=== PATIENT | male | born 1995 | race Caucasian/White ===

== ENCOUNTER 2017-02-19 17:08 | Emergency (ER) | payer BC, OTHER ==
[~2017-02-19] VITALS: Ht 185.4 cm; Wt 123.8 kg
[~2017-02-19 17:08] MED LIST: SERT50TA PO
[2017-02-19 17:34] VITALS: TEMP 37.6; Ht 185.4 cm; Wt 123.8 kg
[2017-02-19] MEDS ORDERED: CEFTRIAXONE SOD INJ 1 GM ADDVIAL IV STA (19:22)
[2017-02-19] MEDS ORDERED: KETOROLAC TROMETHAMINE 30 MG/ML VIAL IV STA (19:22)
[2017-02-19] MEDS ORDERED: NYSTATIN SUSP 500,000 U/5 ML UDC PO STA (19:22)
[2017-02-19] MEDS ORDERED: DEXAMETHASONE SOD INJ 10 MG/ML VIAL IV ONE (19:30)
[2017-02-19] MEDS ORDERED: CEPH500C PO (19:44)
[2017-02-19 19:53] LABS: HEMATOCRIT 41.9 % (42-52); MEAN CELL VOLUME 85.2 fL (80-100); MEAN CORPUSCULAR HEMOGLOBIN 29.7 pg (25-34); MEAN CORPUSCULAR HGB CONC 34.8 g/dl (32-36); MEAN PLATELET VOLUME 9.6 fL (7.4-10.4); PLATELET COUNT 197 K/uL (130-400); RED BLOOD COUNT 4.92 M/uL (4.7-6.1); WHITE BLOOD COUNT 18.14 K/uL (4.8-10.8)
[2017-02-19 20:14] LABS: COMPLETE YES; LYMPH ABS # 2.39 K/uL (1.2-3.4); LYMPHOCYTE % 13.2 %; NEUTROPHILS % 39.4 %; VARIANT LYM ABS # 7.17 K/uL; VARIANT LYMPHOCYTE % 39.5 %
[2017-02-19 20:20] LABS: BUN/CREATININE RATIO 11.3 (10-20); CALCIUM 8.8 mg/dl (8.5-10.1); POTASSIUM 3.8 mmol/L (3.5-5.1)
--- NOTE | 2017-02-19 20:58 | EMERGENCY ROOM VISIT NOTE ---
History Report prepared by Brenda: Jaziel Minor Under the Supervision of: Dr. Quirino Cronin D.O. First contact with patient: 19:10 Chief Complaint: ILLNESS Stated Complaint: SWOLLEN/SORE TONSILS, FEVER, DIARRHEA, MOUTH SORES History of Present Illness The patient is a 21 year old male who presents to the Emergency Room with complaints of a persistent illness beginning about 1 week ago. He notes his tonsils became swollen and he had a sore throat. He was prescribed a z-pack which reduced his swelling mostly but did not resolve his sore throat. He was prescribed a different antibiotic after telling his PCP that the z-pack did not work. He was then prescribed a different antibiotic again after he developed fever, chills, sores in his mouth, a sore tongue, oral thrush, and diarrhea. He notes his sore throat is worsened with swallowing, and that his prescription was changed from a pill to a liquid after he noted he had pain with swallowing, but the patient notes this new antibiotic worsens his oral thrust as it reacts with prednisone. He has not been tested for strep throat. Source of History: patient Onset: about 1 week ago Position: other (global) Quality: other (illness) Timing: other (persistent) Associated Symptoms: + chills, + diarrhea, + fevers, + sorethroat Note: The patient notes having sores in his mouth, a sore tongue, and oral thrush. Review of Systems See HPI for pertinent positives & negatives. A total of 10 systems reviewed and were otherwise negative. Past Medical & Surgical Medical Problems: (1) Asthma (2) Depression Family History Cancer Gallbladder disease Heart disease Hypertension Seizures Social History Smoking Status: Never Smoker Marital Status: single Housing Status: lives with family Occupation Status: student Current/Historical Medications Scheduled Cephalexin Monohydrate (Keflex), 500 MG PO BID Sertraline (Zoloft), 75 MG PO DAILY Allergies Coded Allergies: Amoxicillin (Verified Allergy, Unknown, HIVES, 06/28/15) Uncoded Allergies: PENICILLIN (Allergy, Unknown, UNKNOWN, 02/19/17) SEAFOOD (Allergy, Unknown, UNKNOWN, 02/19/17) Physical Exam Vital Signs Date Time Temp Pulse Resp B/P Pulse Ox O2 Delivery O2 Flow Rate FiO2 02/19/17 19:45 122 18 150/82 96 Room Air 02/19/17 17:34 37.6 118 20 125/75 95 Room Air Physical Exam CONSTITUTIONAL/VITAL SIGNS: Reviewed / noted above. GENERAL: Non-toxic in appearance. INTEGUMENTARY: Warm, dry, and [place]. HEAD: Normocephalic. EYES: without scleral icterus or trauma. ENT/OROPHARYNX: Bilateral exudate and tonsillitis. Uvular edema. No evidence of abscess. White plaque on tongue suggestive of thrush. LYMPHADENOPATHY/NECK: Is supple without lymphadenopathy or meningismus. RESPIRATORY: Lungs clear and equal. CARDIOVASCULAR: Regular rate and rhythm. GI/ABDOMEN: Soft and nontender. No organomegaly or pulsatile mass. No rebound or guarding. Normal bowel sounds. EXTREMITIES: Warm and well perfused. BACK: No CVA tenderness. NEUROLOGICAL: Intact without focal deficits. PSYCHIATRIC: normal affect. MUSCULOSKELETAL: Normally developed with good muscle tone. Medical Decision & Procedures Laboratory Results 02/19/17 19:38 Red Blood Count 4.92, Mean Corpuscular Volume 85.2, Mean Corpuscular Hemoglobin 29.7, Mean Corpuscular Hemoglobin Concent 34.8, Mean Platelet Volume 9.6 02/19/17 19:38 Test 02/19/17 19:38 White Blood Count 18.14 K/uL (4.8-10.8) Red Blood Count 4.92 M/uL (4.7-6.1) Hemoglobin 14.6 g/dL (14.0-18.0) Hematocrit 41.9 % (42-52) Mean Corpuscular Volume 85.2 fL (80-100) Mean Corpuscular Hemoglobin 29.7 pg (25-34) Mean Corpuscular Hemoglobin Concent 34.8 g/dl (32-36) Platelet Count 197 K/uL (130-400) Mean Platelet Volume 9.6 fL (7.4-10.4) RDW Standard Deviation 44.7 fL (36.4-46.3) RDW Coefficient of Variation 14.3 % (11.5-14.5) Neutrophils % (Manual) 39.4 % Lymphocytes % (Manual) 13.2 % Variant Lymphocytes % (manual) 39.5 % Monocytes % (Manual) 7.9 % Neutrophils # (Manual) 7.15 K/uL (1.4-6.5) Total Absolute Neutrophils 7.15 K/uL (1.4-6.5) Lymphocytes # (Manual) 2.39 K/uL (1.2-3.4) Absolute Variant Lymphocytes 7.17 K/uL Total Absolute Lymphocytes 9.56 K/uL (1.2-3.4) Monocytes # (Manual) 1.43 K/uL (0.11-0.59) Red Blood Cell Morphology Unremarkable Anion Gap 12.0 mmol/L (3-11) Est Creatinine Clear Calc Drug Dose 161.1 ml/min Estimated GFR () 124.1 Estimated GFR (Non- 107.1 BUN/Creatinine Ratio 11.3 (10-20) Calcium Level 8.8 mg/dl (8.5-10.1) Monoscreen POS (NEG) Laboratory results as stated above per my review. Medications Administered Medications (Trade) Dose Ordered Sig/Sheila Route Start Time Stop Time Status Last Admin Dose Admin Nystatin (Mycostatin Susp) 5 ml NOW STAT PO 02/19/17 19:22 02/19/17 19:28 DC 02/19/17 19:49 5 ML Dexamethasone Sodium Phosphate (Decadron Inj) 10 mg NOW ONCE IV 02/19/17 19:30 02/19/17 19:31 DC 02/19/17 19:48 10 MG Ketorolac Tromethamine (Toradol Inj) 30 mg NOW STAT IV 02/19/17 19:22 02/19/17 19:28 DC 02/19/17 19:48 30 MG Ceftriaxone Sodium (Rocephin Inj) 1 gm NOW STAT IV 02/19/17 19:22 02/19/17 19:28 DC 02/19/17 19:47 1 GM ED Course 1910: Previous medical records were reviewed. The patient was evaluated in room C8. A complete history and physical examination was performed. 1921: Ordered Rocephin Inj 1 gm IV, Toradol Inj 30 mg IV, and Nystatin 5 ml PO. 1929: Ordered Decadron Inj 10 mg IV. 2099: On reevaluation, the patient is doing well. I discussed the results and findings with the patient. He verbalized agreement of the treatment plan. The patient was discharged home. Medical Decision Differentials include strep, pharyngitis, mononucleosis, peritonsillar abscess, and viral syndrome. This is a 21-year-old male who presents to the ED with a chief complaint of sore throat. The patient states that he has had the symptoms for a little over a week. He states that he has been placed on a Z-Micha initially a week ago for the symptoms but it did not help. He was placed on a second antibiotic that he did not complete. He developed some white plaques on his tongue and in addition to a sore throat. Because of his continued symptoms, he came here for evaluation. Temperature is 37.6. Heart rate is 118. Physical exam reveals an exudative tonsillitis without abscess. He also has some thrush on his tongue. There is no anterior lymphadenopathy that is appreciated. Lungs are clear. Rest of exam was unremarkable. The WBC is 18. Strep test is negative. PRP was normal. Monospot is positive. The patient was told results the test. He was given IV Decadron 10 mg as well as IV Toradol. By mouth nystatin was given an IV Rocephin was given antibiotic will not be continued as he has a positive Monospot. He was told to take ibuprofen as needed for discomfort. Impression Primary Impression: Mononucleosis Scribe Attestation The scribe's documentation has been prepared under my direction and personally reviewed by me in its entirety. I confirm that the note above accurately reflects all work, treatment, procedures, and medical decision making performed by me. Departure Information Dispostion Home / Self-Care Referrals Shad Lombardi MD (PCP) Patient Instructions ED Mononucleosis, [facility] Additional Instructions Take ibuprofen or Tylenol as needed for discomfort. Stay hydrated. Avoid contact sports. Return to the emergency department for any concerns or sudden abdominal pains especially in the left upper abdomen.
[2017-02-19 21:07] VITALS: BP 113/85; PULSE 114; O2SAT 97
== END 2017-02-19 21:08 | disposition home or self-care (01) ==
LOC: C.EDB 17:12 → C.EDC 21:08
DX: B27.90 Infectious mononucleosis, unspecified without complication (principal); J45.909 Unspecified asthma, uncomplicated; F32.9 Major depressive disorder, single episode, unspecified; Z79.899 Other long term (current) drug therapy; Z88.0 Allergy status to penicillin; Z88.1 Allergy status to other antibiotic agents; Z91.018 Allergy to other foods; Z83.79 Family history of other diseases of the digestive system; Z82.49 Family history of ischemic heart disease and other diseases of the circulatory system; Z82.0 Family history of epilepsy and other diseases of the nervous system